=== PATIENT | male | born 1990 | race Caucasian/White ===

== ENCOUNTER 2019-01-10 12:55 | Emergency (ER) | payer OTHER, MEDICAID ==
--- NOTE | 2019-01-10 13:52 | UC ---
Eye Complaint HPI - HPI Summary HPI Summary: 28 year old male with no PMH, no medications presents with redness to r lower eye lash x 24 hours. no fever, chills, no ill feelings, no sicknesses, no FB feeling or exposure to metal/ etc. visin unchanged, no prior occurrence. - History of Current Complaint Chief Complaint: UCEye Stated Complaint: EYE ISSUE Time Seen by Provider: 01/10/19 13:35 Hx Obtained From: Patient Onset/Duration: Sudden Onset, Lasting Hours - ~ 24 hours Timing: Constant Severity Initially: Mild Severity Currently: Mild Pain Intensity: 2 Pain Scale Used: 0-10 Numeric Location of Injury: Eye Lid (lower) Character: Dull Aggravating Factor(s): Nothing Associated Signs And Symptoms: Positive: Drainage (Clear) - increased drainage from Right eye, Swelling - right lower lid. Negative: Vision Impairment Right, Vision Impairment Left, Fever - Allergies/Home Medications Allergies/Adverse Reactions: Allergies Allergy/AdvReac Type Severity Reaction Status Date / Time No Known Allergies Allergy Verified 01/10/19 13:17 PMH/Surg Hx/FS Hx/Imm Hx Previously Healthy: Yes - no prior eye complaints, no contact lenses - Surgical History Surgical History: Yes Surgery Procedure, Year, and Place: nasal surgery - Social History Alcohol Use: None Substance Use Type: None Smoking Status (MU): Never Smoked Tobacco Review of Systems All Other Systems Reviewed And Are Negative: Yes Constitutional: Negative: Fever, Chills Eyes: Positive: Drainage, Other - swelling. Negative: Blurred Vision, Diplopia , Eye Redness Is Patient Immunocompromised?: No Physical Exam Triage Information Reviewed: Yes Appearance: Well-Appearing, No Pain Distress, Well-Nourished Vital Signs: Initial Vital Signs Temp 97.3 F 01/10/19 13:15 Pulse 76 01/10/19 13:15 Resp 18 01/10/19 13:15 BP 112/70 01/10/19 13:15 Pulse Ox 98 01/10/19 13:15 Vital Signs Reviewed: Yes Eyes: Positive: Conjunctiva Clear, Other: - lower lid with visible blocked duct with edema below, minimally tender to palpation, increased dried discharge exterior eye, no drianage noted, Full EMOI without pain, no redness, swelling upper eyelid, conju. clear. Negative: Discharge ENT: Positive: Hearing grossly normal Neck: Positive: Supple. Negative: Nuchal Rigidity Neurological Exam: Normal Psychological Exam: Normal Skin Exam: Normal Eye Complaint Course/Dx - Course Course Of Treatment: stye- discussed they resolve spontaneously over several days and do not require specific intervention. - They can be managed with warm compresses, which are placed on the face for about 15 minutes four times per day, in order to facilitate drainage. - Massage and gentle wiping of the affected eyelid after the warm compress can also aid in drainage. - Patients should discontinue eye makeup to support healing. - If, despite management with warm compresses, the lesion does not reduce in size within one to two weeks, the patient should be referred to an head of research & insights for incision and drainage. - Differential Dx/Diagnosis Differential Diagnosis/HQI/PQRI: Conjunctivitis, Corneal Abrasion, Uveitis Provider Diagnosis: Hordeolum externum (stye) Discharge - Sign-Out/Discharge Documenting (check all that apply): Patient Departure All imaging exams completed and their final reports reviewed: No Studies - Discharge Plan Condition: Good Disposition: TRANS [facility] Prescriptions: Erythromycin OPTH OINT* [Erythromycin 0.5% OPTH OINT*] 1 applic LEFT EYE TID #1 ophth.oint Patient Education Materials: Stye (ED) Referrals: No Primary Care Phys,NOPCP [Primary Care Provider] - Panfilo Hester MD [Medical Doctor] - (If no improvement or worsening ) Additional Instructions: Most hordeola resolve spontaneously over several days and do not require specific intervention. - They can be managed with warm compresses, which are placed on the face for about 15 minutes four times per day, in order to facilitate drainage. - Massage and gentle wiping of the affected eyelid after the warm compress can also aid in drainage. - Patients should discontinue eye makeup to support healing. - If, despite management with warm compresses, the lesion does not reduce in size within one to two weeks, the patient should be referred to an head of research & insights for incision and drainage. - Billing Disposition and Condition Condition: GOOD Disposition: Trans Higher Lvl of Care Fac
== END 2019-01-10 13:54 | disposition short-term general hospital (02) ==
LOC: UCEAST 12:55
DX: H00.012 Hordeolum externum right lower eyelid (principal)
CPT/HCPCS: 99202; G0463